=== PATIENT | male | born 1995 | race Caucasian/White ===

== ENCOUNTER → 2023-08-20 | Outpatient (REF) | payer BC | LOC: M LAB REF 17:20 | PROVIDERS: ATTEND Otolaryngology | DX: J02.9 Acute pharyngitis, unspecified (principal) ==

== ENCOUNTER → 2023-10-22 | Outpatient (REF) | LOC: M EMP 09:39 | PROVIDERS: ATTEND Family Medicine | DX: R09.89 Other specified symptoms and signs involving the circulatory and respiratory systems (principal) ==

== ENCOUNTER → 2023-12-29 | Outpatient (CLI) | payer BC | LOC: M RAD 10:47 | PROVIDERS: ATTEND Otolaryngology | DX: J32.8 Other chronic sinusitis (principal) ==

== ENCOUNTER 2024-01-12 08:23 | Day surgery (SDC) | payer BC ==
[~2024-01-12] VITALS: Ht 170.2 cm; Wt 66.5 kg
[2024-01-12] MEDS: NS 1,000 ML IV SCH (09:09)
[2024-01-12] MEDS ORDERED: dexmedeTOMIDine (4MCG/ML)200MCG/50ML BTL (PRECEDEX) As Ordered ONE (10:10)
[2024-01-12] MEDS ORDERED: ROCURONIUM BROMIDE 50MG/5ML VIAL As Ordered ONE (10:10)
[2024-01-12] MEDS ORDERED: fentaNYL 250 MCG/5 ML INJECTION As Ordered ONE (10:10)
[2024-01-12] MEDS ORDERED: ONDANSETRON 4MG 2ML VIAL As Ordered ONE (10:10)
[2024-01-12] MEDS ORDERED: propofoL 200 MG/20 ML VIAL As Ordered ONE (10:10)
[2024-01-12] MEDS ORDERED: MIDAZOLAM INJ 2MG/2ML VIAL As Ordered ONE (10:10)
[2024-01-12] MEDS ORDERED: LIDOCAINE 2% 100MG/5ML SDV (FOR ANES.) As Ordered ONE (10:16)
[2024-01-12] MEDS ORDERED: PHENYLephrine 500MCG 5ML (100MCG/ML) SYRINGE As Ordered ONE (11:32)
[2024-01-12] MEDS ORDERED: ACETAMINOPHEN 1000MG 100ML IV BAG As Ordered ONE (11:40)
[2024-01-12] MEDS ORDERED: SUGAMMADEX SODIUM 500 MG/5 ML VIAL (BRIDION) As Ordered ONE (11:40)
[2024-01-12] MEDS: COCAINE 4% 4ML NASAL SOLUTION BTL As Ordered ONE (12:00)
[2024-01-12] MEDS: OXYMETAZOLINE 0.05% NASAL SPRAY (AFRIN) As Ordered ONE (12:03)
[2024-01-12] MEDS: LIDOCAINE W/EPINEPHRINE 1% 20ML VIAL As Ordered ONE (12:03)
[2024-01-12] MEDS ORDERED: ONDANSETRON 4MG 2ML VIAL IV PRN (12:20)
[2024-01-12] MEDS ORDERED: HYDROMORPHONE HCL 0.5 MG/ 0.5 ML SYRINGE IV PRN (12:20)
[2024-01-12] MEDS ORDERED: fentaNYL 100 MCG/2 ML INJECTION IV PRN (12:20)
[2024-01-12] MEDS ORDERED: NS 1,000 ML IV SCH (12:20)
[2024-01-12] MEDS ORDERED: oxyCODONE 5MG TAB PO PRN (12:20)
[2024-01-12 13:52] VITALS: BP 128/62; TEMP 97.7; O2SAT 100
== END 2024-01-12 13:54 | disposition home or self-care (01) ==
LOC: M SDC 08:23
PROVIDERS: ATTEND Otolaryngology
DX: J32.0 Chronic maxillary sinusitis (principal); I34.1 Nonrheumatic mitral (valve) prolapse; R09.89 Other specified symptoms and signs involving the circulatory and respiratory systems; Z79.899 Other long term (current) drug therapy
CPT/HCPCS: 31267; 61782; 88305; A6024; C9143; J0131; J1100; J2250; J2371; J2405; J3010

== ENCOUNTER → 2024-06-22 | Outpatient (REF) | payer BC | LOC: M LAB REF 17:34 | PROVIDERS: ATTEND Internal Medicine | DX: R53.83 Other fatigue (principal); R68.2 Dry mouth, unspecified ==

== ENCOUNTER 2024-09-14 06:41 | Day surgery (SDC) | payer BC ==
[~2024-09-14] VITALS: Ht 170.2 cm; Wt 63.2 kg
[~2024-09-14 06:41] MED LIST: CLAR5TAB7 PO; FLON1SPR; MONT10TA97 PO; TESTOSTERONE SUPPORT PA
[2024-09-14 07:47] VITALS: TEMP 97.6
[2024-09-14 08:10] VITALS: BP 115/57; O2SAT 100
== END 2024-09-14 08:30 | disposition home or self-care (01) ==
LOC: M OPP 06:41
PROVIDERS: ATTEND Surgery
DX: K64.1 Second degree hemorrhoids (principal); K62.5 Hemorrhage of anus and rectum; Z91.048 Other nonmedicinal substance allergy status; Z79.51 Long term (current) use of inhaled steroids; Z79.899 Other long term (current) drug therapy